=== PATIENT | female | born 1955 | race Hispanic/Latino ===

== ENCOUNTER → 2022-03-10 | Outpatient (CLI) | payer MEDICARE | LOC: RAD 13:16 | PROVIDERS: ATTEND Internal Medicine | DX: M79.641 Pain in right hand (principal); M54.50 Low back pain, unspecified | CPT/HCPCS: 72110 ==

== ENCOUNTER → 2022-06-21 | Outpatient (CLI) | payer MEDICARE | LOC: RAD 14:22 | PROVIDERS: ATTEND Internal Medicine | DX: M25.532 Pain in left wrist (principal); M79.642 Pain in left hand; W19.XXXA Unspecified fall, initial encounter ==